=== PATIENT | male | born 1995 | race Caucasian/White ===

== ENCOUNTER → 2025-01-13 14:50 | Outpatient (CLI) | payer OTHER, SELFPAY ==
--- NOTE | 2025-01-13 14:52 | DI.US.S_ITS ---
PROCEDURE: US SCROTUM INDICATIONS: Left Testicular Mass TECHNIQUE: Real-time scanning was performed of the scrotum and testicles, with image documentation. Color and pulse Doppler interrogation was performed of both testicles. COMPARISON: None. FINDINGS: Right: Testicle is normal in size and homogenous in echotexture. Epididymis is normal in overall size and morphology. No hydrocele or varicoceles. Overlying scrotal skin is normal in thickness. Left: Testicle is normal in size and homogeneous in echotexture. Epididymis is normal in overall size and morphology. No hydrocele or varicoceles. Overlying scrotal skin is normal in thickness. Left epididymal simple appearing cyst measures 1.9 x 1 cm. Doppler: Color and pulse Doppler demonstrate normal and symmetric arterial flow in both testicles. IMPRESSION: Left epididymal cyst. No intratesticular suspicious mass. Dictated by: Jim Davila M.D. on 01/13/2025 at 15:28 Approved by: Jim Davila M.D. on 01/13/2025 at 15:29
== END ==
LOC: US 14:51
PROVIDERS: PCP Family Medicine; Referring Provider Family Medicine; Visit Provider Family Medicine
DX: N50.89 Other specified disorders of the male genital organs (principal); N50.3 Cyst of epididymis
CPT/HCPCS: 76870